=== PATIENT | male | born 1980 | race African-American/Black ===

== ENCOUNTER 2017-12-13 20:32 | Emergency (ER) | payer SELFPAY ==
[2017-12-13 20:41] VITALS: BP 116/66
[2017-12-13] MEDS ORDERED: LORATADINE 10 MG TABLET PO ONE (20:58)
[2017-12-13] MEDS ORDERED: ALBUTEROL SULFATE HFA (90 MCG/PUFF) 8 GM MDI (1 MDI/ER DISP) IH ONE (20:58)
--- NOTE | 2017-12-13 21:04 | ER Document Report ---
ED Medical Screen (RME) - General Chief Complaint: Facial Swelling Stated Complaint: FACIAL SWELLING Time Seen by Provider: 12/13/17 20:45 Mode of Arrival: Ambulatory Information source: Patient Notes: This is a 37-year-old man who presents to the emergency room with complaints of swelling in his face when he is out in the sun and with activity. He also states that when he is running around, he gets short of breath. He does report that he has a lot of dry skin and that he has had dry skin for a long time. Currently, the patient has no swelling, shortness of breath. He denies fever, chills, recent illnesses. He denies chest pain. He denies abdominal pain. He states his appetite is good. TRAVEL OUTSIDE OF THE [place] IN LAST 30 DAYS: No - HPI Onset: Other - Past few months Onset/Duration: Gradual Quality of pain: No pain Severity: None Pain Level: Denies Associated Symptoms: denies: Chest pain, Shortness of breath Exacerbated by: Denies Relieved by: Denies Similar symptoms previously: Yes Recently seen / treated by doctor: No - Related Data Smoking: Non-smoker Frequency of alcohol use: None Drug Abuse: None Allergies/Adverse Reactions: No Known Allergies Allergy (Verified 12/13/17 20:33) Past Medical History - General Information source: Patient - Social History Cigarette use (# per day): No Chew tobacco use (# tins/day): No Frequency of alcohol use: None Drug Abuse: None Lives with: Family Family history: None - Medical History Medical History: Negative Renal/ Medical History: Denies: Hx Peritoneal Dialysis Surgical Hx: Negative - Immunizations Hx Diphtheria, Pertussis, Tetanus Vaccination: Yes Review of Systems - Review of Systems Constitutional: denies: Chills, Fever EENT: See HPI Cardiovascular: denies: Chest pain, Palpitations, Heart racing Respiratory: See HPI Gastrointestinal: No symptoms reported Genitourinary: No symptoms reported Male Genitourinary: No symptoms reported Musculoskeletal: No symptoms reported Skin: No symptoms reported Hematologic/Lymphatic: No symptoms reported Neurological/Psychological: No symptoms reported Physical Exam - Vital signs Vitals: Temp Pulse Resp BP Pulse Ox 98.7 F 90 18 116/66 97 12/13/17 20:39 12/13/17 20:39 12/13/17 20:39 12/13/17 20:39 12/13/17 20:39 Notes: Physical exam: GENERAL: A 7-year-old man, alert and oriented 3, no acute distress HEAD: Atraumatic, normocephalic. EYES: Pupils equal round and reactive to light, extraocular movements intact, sclera anicteric, conjunctiva are normal. ENT: TMs normal, nares patent, oropharynx clear without exudates. Moist mucous membranes. NECK: Normal range of motion, supple without obvious mass or JVD. LUNGS: Breath sounds clear to auscultation bilaterally and equal. No wheezes rales or rhonchi. HEART: Regular rate and rhythm without murmurs, rubs or gallops. ABDOMEN: Soft, normoactive bowel sounds. No tenderness to palpation. No guarding, no rebound. No masses appreciated. EXTREMITIES: Normal range of motion, no pitting or edema. No clubbing or cyanosis. NEUROLOGICAL: Cranial nerves II through XII grossly intact. Normal speech, moving all extremities. PSYCH: Normal mood, normal affect. SKIN: Warm, Dry, normal turgor, no rashes or lesions noted. Course - Vital Signs Vital signs: Temp Pulse Resp BP Pulse Ox 98.7 F 90 18 116/66 97 12/13/17 20:39 12/13/17 20:39 12/13/17 20:39 12/13/17 20:39 12/13/17 20:39 Doctor's Discharge - Discharge Clinical Impression: Allergic type symptoms Condition: Stable Disposition: HOME, SELF-CARE Additional Instructions: In the emergency room, your oxygen level was near perfect. Your vital signs were normal. Your lung sounds were quite good and there was no obvious swelling of the face. From the sounds of the symptoms that she been having, it almost sounds like you may have exercise induced asthma and or some allergic symptoms. Often times we will have people follow-up with an hospitalist physician to undergo allergy testing. Recommendations: Take medicines as prescribed. Take epinephrine autoinjector for any shortness of breath or feelings like her airway is getting closed off work the ability to pass out. If you use the autoinjector, return to the ER at once. Followup with an hospitalist physician for allergy testing: [facility]: Address: [address] [place] [address], [place] [address] Return to the emergency room for any worsening swelling, concerns or getting worse. Prescriptions: Loratadine [Claritin 10 mg Tablet] 10 mg PO DAILY #30 tablet Referrals: [facility] [Provider Group] - Follow up as needed (This is the number the free clinic)
== END 2017-12-13 21:05 | disposition home or self-care (01) ==
LOC: ER 20:32
DX: R22.0 Localized swelling, mass and lump, head (principal); R06.02 Shortness of breath; T78.40XA Allergy, unspecified, initial encounter; X58.XXXA Exposure to other specified factors, initial encounter
CPT/HCPCS: 99283; J3490

== ENCOUNTER 2018-04-17 01:35 | Emergency (ER) | payer SELFPAY ==
[2018-04-17] MEDS ORDERED: NORMAL SALINE 1000 ML 1,000 ML IV ONE (02:13)
--- NOTE | 2018-04-17 02:51 | ER Document Report ---
ED General - General Chief Complaint: Dizziness Stated Complaint: DIZZY Time Seen by Provider: 04/17/18 01:50 Notes: Patient is a 37-year-old male that presents to the emergency department for chief complaint of blood in the stool. Patient states that over the past 3 days, he is noted some blood mixed with his stool. He has had some bloody diarrhea as well, occasionally states he will get a sharp pain in his rectum, but that is intermittent, currently he denies having any pain. When the pain does come on he describes it as a 4 out of 10, as mentioned sharp in nature. He denies prior history of bloody stools. Is not sure if he has had hemorrhoids in the past. Denies family history of inflammatory bowel disease. He denies noting any abdominal pain at this time, and overall he states he feels well, just wanted to have this evaluated. He denies any recent fevers, chills, night sweats, nausea, vomiting, chest pain or shortness of breath. Past Medical History: Denies chronic medical conditions Past Surgical History: Denies surgical history Social History: Denies tobacco, alcohol or drug use. Family History: Reviewed and noncontributory for presenting illness Allergies: Reviewed, see documented allergy list. REVIEW OF SYSTEMS: Other than noted above, the 12 point review of systems was reviewed with the patient and were negative, all pertinent findings are included in the HPI. PHYSICAL EXAMINATION: Vital signs reviewed, nursing noted reviewed. GENERAL: Well-appearing, well-nourished and in no acute distress. HEAD: Atraumatic, normocephalic. EYES: Eyes appear normal, extraocular movements intact, sclera anicteric, conjunctiva are normal. ENT: nares patent, oropharynx clear without exudates. Moist mucous membranes. NECK: Normal range of motion, supple without lymphadenopathy LUNGS: Breath sounds clear to auscultation bilaterally and equal. No wheezes rales or rhonchi. HEART: Regular rate and rhythm without murmurs ABDOMEN: Soft, nontender, normoactive bowel sounds. No rebound, guarding, or rigidity. No masses appreciated. EXTREMITIES: Nontender, good range of motion, no pitting or edema. NEUROLOGICAL: No focal neurological deficits. Moves all extremities spontaneously Motor and sensory grossly intact on exam. PSYCH: Normal mood, normal affect. SKIN: Warm, Dry, normal turgor, no rashes or lesions noted on exposed skin TRAVEL OUTSIDE OF THE [place] IN LAST 30 DAYS: No - Related Data Allergies/Adverse Reactions: No Known Allergies Allergy (Verified 12/13/17 20:33) Past Medical History - Social History Smoking Status: Never Smoker Family History: Reviewed & Not Pertinent Patient has suicidal ideation: No Patient has homicidal ideation: No Renal/ Medical History: Denies: Hx Peritoneal Dialysis - Immunizations Hx Diphtheria, Pertussis, Tetanus Vaccination: Yes Physical Exam - Vital signs Vitals: Temp Pulse Resp BP Pulse Ox 98.0 F 58 L 16 120/59 L 96 04/17/18 01:39 04/17/18 01:39 04/17/18 01:39 04/17/18 01:39 04/17/18 01:39 Course - Re-evaluation Re-evalutation: Patient seen and examined vital signs reviewed. Laboratory data and imaging were ordered as appropriate for the patient's presenting symptoms and complaint, with consideration of any critical or life threatening conditions that may be associated with their obtained history and exam as noted above. 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 And I do not think that is related to the patient's presentation. The patient was re-evaluated and was stable, patient's hemoglobin was stable, advised follow-up with gastroenterology, for blood in the stool, he is advised if he has lightheadedness or feels like he may pass out or having progressive bloody stools, that he should return to the emergency department sooner. Evaluation was most consistent with bloody diarrhea Results were discussed with the patient at this point, after careful consideration I feel that that patient can be discharged from the emergency department, the patient was educated treatments and reasons to return to the emergency department based on their presumed diagnosis as noted above, they were advised to followup with a primary care physician in 2-3 days. Patient was agreeable to plan of care. *Note is created using voice recognition software and may contain spelling, syntax or grammatical errors. Laboratory 04/17/18 04/17/18 02:50 02:50 WBC 5.0 RBC 4.31 L Hgb 14.0 Hct 41.2 MCV 96 MCH 32.6 MCHC 34.0 RDW 12.9 Plt Count 202 Seg Neutrophils % 44.6 Lymphocytes % 39.6 Monocytes % 8.5 Eosinophils % 6.3 H Basophils % 1.0 Absolute Neutrophils 2.2 Absolute Lymphocytes 2.0 Absolute Monocytes 0.4 Absolute Eosinophils 0.3 Absolute Basophils 0.0 Sodium 137.7 Potassium 4.1 Chloride 106 Carbon Dioxide 27 Anion Gap 5 BUN 16 Creatinine 1.11 Est GFR ( Amer) > 60 Est GFR (Non-Af Amer) > 60 Glucose 110 Calcium 9.3 Total Bilirubin 1.6 H Direct Bilirubin 0.1 Neonat Total Bilirubin Not Reportable Neonat Direct Bilirubin Not Reportable Neonat Indirect Bili Not Reportable AST 57 ALT 39 Alkaline Phosphatase 35 L Total Protein 5.9 L Albumin 3.5 - Vital Signs Vital signs: Temp Pulse Resp BP Pulse Ox 98.0 F 58 L 16 120/59 L 96 04/17/18 01:39 04/17/18 01:39 04/17/18 01:39 04/17/18 01:39 04/17/18 01:39 - Laboratory Result Diagrams: 04/17/18 02:50 04/17/18 02:50 Laboratory results interpreted by me: 04/17/18 04/17/18 02:50 02:50 RBC 4.31 L Eosinophils % 6.3 H Total Bilirubin 1.6 H Alkaline Phosphatase 35 L Total Protein 5.9 L - EKG Interpretation by Me Additional EKG results interpreted by me: EKG demonstrates sinus bradycardia with a ventricular rate of 51 bpm, normal axis, normal intervals, no evidence of acute ischemia on this EKG. No prior EKG for comparison. Discharge - Discharge Clinical Impression: Blood in stool Condition: Stable Disposition: HOME, SELF-CARE Instructions: Diarrhea, Nonspecific ([facility]) Additional Instructions: Please follow-up with a cmm inspector, and if you have worsening symptoms or if this is persisting and you have lightheadedness, and continue to have blood in your stool, do not hesitate to return to the emergency department. Referrals: ANIBAL OWENS MD [ACTIVE STAFF] - Follow up in 3-5 days SHADI SAAVEDRA MD [ACTIVE STAFF] - Follow up in 3-5 days
[2018-04-17 03:05] LABS: ABSOLUTE EOSINOPHILS # (AUTO) 0.3 10^3/uL (0.0-0.6); ABSOLUTE MONOCYTES (AUTO) 0.4 10^3/uL (0.1-1.4); ABSOLUTE NEUT (AUTO) 2.2 10^3/uL (1.7-8.2); EOSINOPHILS % (AUTO) 6.3 % (0-6); HEMATOCRIT 41.2 % (37.9-51.0); LYMPHOCYTES % (AUTO) 39.6 % (13-45); MEAN CORPUSCULAR HEMOGLOBIN 32.6 pg (27.0-33.4); MEAN CORPUSCULAR VOLUME 96 fl (80-97); MONOCYTES % (AUTO) 8.5 % (3-13); PLATELET COUNT 202 10^3/uL (150-450); RED BLOOD COUNT 4.31 10^6/uL (4.35-5.55); RED CELL DISTRIBUTION WIDTH 12.9 % (11.5-14.0); SEGMENTED NEUTROPHILS % (AUTO) 44.6 % (42-78); TOTAL CELLS COUNTED % (AUTO) 100 %
[2018-04-17 03:31] LABS: ALANINE AMINOTRANSFERASE 39 U/L (21-72); ALBUMIN 3.5 g/dL (3.5-5.0); ALKALINE PHOSPHATASE 35 U/L (38-126); ANION GAP 5 (5-19); ASPARTATE AMINO TRANSFERASE 57 U/L (17-59); BILIRUBIN,DIRECT 0.1 mg/dL (0.0-0.4); BILIRUBIN,TOTAL 1.6 mg/dL (0.2-1.3); BLOOD UREA NITROGEN 16 mg/dL (7-20); CALCIUM 9.3 mg/dL (8.4-10.2); CARBON DIOXIDE 27 mmol/L (22-30); CHLORIDE 106 mmol/L (98-107); GLUCOSE 110 mg/dL (75-110); POTASSIUM 4.1 mmol/L (3.6-5.0); SODIUM 137.7 mmol/L (137-145); TOTAL PROTEIN 5.9 g/dL (6.3-8.2)
[2018-04-17 04:09] VITALS: BP 124/82
--- NOTE | 2018-04-17 15:37 | EKG REPORT ---
SEVERITY:- ABNORMAL ECG - SINUS RHYTHM ST ELEVATION SUGGESTS PERICARDITIS : Confirmed by: Thais Oconnor 17-Apr-2018 15:36:41
== END 2018-04-17 04:09 | disposition home or self-care (01) ==
LOC: ER 01:35
DX: R19.5 Other fecal abnormalities (principal); R19.7 Diarrhea, unspecified; R42 Dizziness and giddiness
CPT/HCPCS: 93005; 99284; 96360; 36415; 85025; 80053; 93010; J7030

== ENCOUNTER 2019-12-22 21:32 | Emergency (ER) | payer SELFPAY ==
--- NOTE | 2019-12-22 23:17 | RADIOLOGY REPORT (SQ) ---
CLINICAL INDICATION: EDEMA . TECHNIQUE: PA and lateral views were obtained of the chest COMPARISON: None. FINDINGS: The cardiomediastinal silhouette is normal. The lungs demonstrate mild interstitial prominence without vascular congestion and subtle associated patchy alveolar space changes. No evidence of effusion or pneumothorax. Visualized bones are unremarkable. . IMPRESSION: Mild interstitial and alveolar space disease rather diffusely bilaterally. No vascular congestion. .
--- NOTE | 2019-12-23 00:01 | ER Document Report ---
ED Medical Screen (RME) - General Chief Complaint: Edema Stated Complaint: CHEST PAIN Time Seen by Provider: 12/22/19 23:53 Mode of Arrival: Wheelchair Information source: Patient Notes: 39 year-old male presented to ED for complaint of chest pain. He states intermittently he gets swelling to his face his neck his hands and his feet and then he gets severe chest pain. He states it comes and goes. He states he has not been to see a doctor since 2018. He states he lost some weight and thought he was could be fine so he did not follow-up with anybody. He states today he started getting the swelling in his face his neck his hands and his feet and then he started getting the chest pain. He actually feels a little better now. Patient is alert oriented and answering questions appropriately. I have greeted and performed a rapid initial assessment of this patient. A comprehensive ED assessment and evaluation of the patient, analysis of test results and completion of medical decision making process will be conducted by an additional ED providers. TRAVEL OUTSIDE OF THE [place] IN LAST 30 DAYS: No - Related Data Allergies/Adverse Reactions: No Known Allergies Allergy (Verified 12/13/17 20:33) Past Medical History - Social History Family history: None Renal/ Medical History: Denies: Hx Peritoneal Dialysis - Immunizations Hx Diphtheria, Pertussis, Tetanus Vaccination: Yes Physical Exam - Vital signs Vitals: Temp Pulse Resp BP Pulse Ox 98.2 F 54 L 18 118/49 L 97 12/22/19 21:47 12/22/19 21:47 12/22/19 21:47 12/22/19 21:47 12/22/19 21:47 Course - Vital Signs Vital signs: Temp Pulse Resp BP Pulse Ox 98.2 F 54 L 18 118/49 L 97 12/22/19 21:47 12/22/19 21:47 12/22/19 21:47 12/22/19 21:47 12/22/19 21:47
--- NOTE | 2019-12-23 00:47 | EKG REPORT ---
SEVERITY:- OTHERWISE NORMAL ECG - SINUS ARRHYTHMIA, RATE 45-66 : Confirmed by: Crista Muñoz MD 23-Dec-2019 00:46:07
--- NOTE | 2019-12-23 00:50 | ER Document Report ---
ED General - General Chief Complaint: Edema Stated Complaint: CHEST PAIN Time Seen by Provider: 12/22/19 23:53 Mode of Arrival: Wheelchair Information source: Patient Notes: ED Medical Screen (Henok dominguez) - General Chief Complaint: Edema Stated Complaint: CHEST PAIN Time Seen by Provider: 12/22/19 23:53 Mode of Arrival: Wheelchair Information source: Patient Notes: 39 year-old male presented to ED for complaint of chest pain. He states intermittently he gets swelling to his face his neck his hands and his feet and then he gets severe chest pain. He states it comes and goes. He states he has not been to see a doctor since 2018. He states he lost some weight and thought he was could be fine so he did not follow-up with anybody. He states today he started getting the swelling in his face his neck his hands and his feet and then he started getting the chest pain. He actually feels a little better now. Patient is alert oriented and answering questions appropriately. MY NOTES 39-year-old black male arrives with acute onset of diffuse chest pain and shortness of breath. It was worse yesterday after working out with weights in the heat. He began to have tightness of his throat neck swelling perioral and periorbital eye swelling swelling of his hands and feet. He reports symptoms like this first began when he was 29 years old and progressively has been getting worse. He denies any use of cocaine but reports when he was younger he did smoke a lot of cigarettes. Patient denies any HIV tuberculosis coronavirus exposure. He has not been outside the [place]. He denies any prior history of lupus or sarcoidosis in his family or any cancer or heart disease or pulmonary embolism. His chest x-ray today reveals bilateral hilar adenopathy and right lower lobe adenopathy. 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 TRAVEL OUTSIDE OF THE [place] IN LAST 30 DAYS: No - HPI Onset: This morning Quality of pain: Achy Severity: Mild Pain Level: 1 Associated symptoms: Shortness of breath Exacerbated by: Movement, Deep breathing Similar symptoms previously: Yes Recently seen / treated by doctor: No - Related Data Allergies/Adverse Reactions: No Known Allergies Allergy (Verified 12/13/17 20:33) Past Medical History - General Information source: Patient - Social History Smoking Status: Former Smoker Cigarette use (# per day): No Chew tobacco use (# tins/day): No Smoking Education Provided: No Frequency of alcohol use: Occasional Drug Abuse: None Lives with: Family Family History: Reviewed & Not Pertinent Patient has suicidal ideation: No Patient has homicidal ideation: No Renal/ Medical History: Denies: Hx Peritoneal Dialysis - Immunizations Hx Diphtheria, Pertussis, Tetanus Vaccination: Yes Review of Systems - Review of Systems Constitutional: See HPI EENT: No symptoms reported Cardiovascular: See HPI, Dyspnea, Edema Respiratory: See HPI, Cough, Short of breath Gastrointestinal: No symptoms reported Genitourinary: No symptoms reported Male Genitourinary: No symptoms reported Musculoskeletal: No symptoms reported, Joint pain Skin: See HPI, Change in hair/nails, Dryness - Patient complains of severely dry skin Hematologic/Lymphatic: No symptoms reported Neurological/Psychological: No symptoms reported Physical Exam - Vital signs Vitals: Temp Pulse Resp BP Pulse Ox 98.2 F 54 L 18 118/49 L 97 12/22/19 21:47 12/22/19 21:47 12/22/19 21:47 12/22/19 21:47 12/22/19 21:47 Interpretation: Hypertensive - HEENT Head: Normocephalic, Atraumatic Eyes: Normal Pupils: PERRL Nasal: Normal Mouth/Lips: Normal Mucous membranes: Normal Pharynx: Normal Neck: Normal - Respiratory Respiratory status: No respiratory distress Chest status: Nontender Breath sounds: Normal Chest palpation: Normal - Cardiovascular Rhythm: Regular Heart sounds: Normal auscultation Murmur: No - Abdominal Inspection: Normal Distension: No distension Bowel sounds: Normal Tenderness: Nontender Organomegaly: No organomegaly - Rectal Prostate: Other - deferred - Genitourinary Scrotum: Other - deferred - Back Back: Normal - Extremities General upper extremity: Normal inspection General lower extremity: Normal inspection - Neurological Neuro grossly intact: Yes Cognition: Normal Orientation: AAOx4 Zachery Coma Scale Eye Opening: Spontaneous Zachery Coma Scale Verbal: Oriented Zachery Coma Scale Motor: Obeys Commands [place] Coma Scale Total: 15 Speech: Normal Motor strength normal: LUE, RUE, LLE, RLE Sensory: Normal - Psychological Associated symptoms: Normal affect - Skin Skin Temperature: Warm Skin Moisture: Dry Course - Vital Signs Vital signs: Temp Pulse Resp BP Pulse Ox 98.2 F 54 L 19 120/76 100 12/22/19 21:47 12/22/19 21:47 12/23/19 01:01 12/23/19 01:01 12/23/19 01:01 - Laboratory Result Diagrams: 12/23/19 00:44 12/23/19 00:44 Laboratory results interpreted by me: 12/23/19 12/23/19 12/23/19 00:44 00:44 01:16 RBC 4.28 L Total Bilirubin 1.5 H Alkaline Phosphatase 36 L Total Protein 5.6 L Albumin 3.3 L Urine Urobilinogen 4.0 H - Diagnostic Test Radiology reviewed: Reports reviewed - EKG Interpretation by Me EKG shows normal: Sinus rhythm Rate: Bradycardia Rhythm: NSR - [address] elevation no ST depression no T wave elevation no T wave depression axis appears to be within normal limits Discharge - Discharge Clinical Impression: Chest pain at rest, low total protein on blood tests, Bradycardia, Interstitial lung disease Edema Qualifiers: Edema type: unspecified Qualified Code(s): R60.9 - Edema, unspecified Condition: Good Disposition: HOME, SELF-CARE Additional Instructions: Follow-up with Dr. Holbrook road supervisor this week call his office for appointment. Return to ER as needed take medicines as directed. You may want to take consume higher protein in an attempt to raise your total protein levels. Your total protein level in your bloodstream was low tonight. This may contribute to some edema. Also a bunch test was done today and may need quarantine until this test results returned. Referrals: JAMAAL HOLBROOK MD [ACTIVE PROVISIONAL STAFF] - Follow up as needed
[2019-12-23 01:05] LABS: ABSOLUTE EOSINOPHILS # (AUTO) 0.3 10^3/uL (0.0-0.6); ABSOLUTE LYMPHOCYTES (AUTO) 1.7 10^3/uL (0.5-4.7); ABSOLUTE MONOCYTES (AUTO) 0.4 10^3/uL (0.1-1.4); ABSOLUTE NEUT (AUTO) 2.4 10^3/uL (1.7-8.2); BASOPHILS % (AUTO) 0.4 % (0-2); EOSINOPHILS % (AUTO) 5.5 % (0-6); HEMATOCRIT 41.1 % (37.9-51.0); HEMOGLOBIN 13.8 g/dL (13.5-17.0); LYMPHOCYTES % (AUTO) 34.6 % (13-45); MEAN CORPUSCULAR HEMOGLOBIN 32.2 pg (27.0-33.4); MEAN CORPUSCULAR HGB CONC 33.5 g/dL (32.0-36.0); MEAN CORPUSCULAR VOLUME 96 fl (80-97); PLATELET COUNT 170 10^3/uL (150-450); RED BLOOD COUNT 4.28 10^6/uL (4.35-5.55); RED CELL DISTRIBUTION WIDTH 13.1 % (11.5-14.0); SEGMENTED NEUTROPHILS % (AUTO) 50.5 % (42-78); TOTAL CELLS COUNTED % (AUTO) 100 %; WHITE BLOOD COUNT 4.8 10^3/uL (4.0-10.5)
[2019-12-23 01:11] LABS: ALBUMIN 3.3 g/dL (3.5-5.0); ALKALINE PHOSPHATASE 36 U/L (38-126); ANION GAP 6 (5-19); ASPARTATE AMINO TRANSFERASE 26 U/L (17-59); BILIRUBIN,DIRECT 0.1 mg/dL (0.0-0.4); BILIRUBIN,TOTAL 1.5 mg/dL (0.2-1.3); BLOOD UREA NITROGEN 16 mg/dL (7-20); CALCIUM 8.4 mg/dL (8.4-10.2); CARBON DIOXIDE 27 mmol/L (22-30); CHLORIDE 106 mmol/L (98-107); CREATINE KINASE 131 U/L (55-170); GLUCOSE 79 mg/dL (75-110); TOTAL PROTEIN 5.6 g/dL (6.3-8.2)
[2019-12-23 01:47] LABS: NT PRO BNP 62 pg/mL (<125)
[2019-12-23 01:50] LABS: APPEARANCE,URINE CLEAR; BILIRUBIN,URINE NEGATIVE (NEGATIVE); COLOR,URINE YELLOW; GLUCOSE, URINE NEGATIVE (NEGATIVE); KETONES,URINE NEGATIVE (NEGATIVE); LEUKOCYTE ESTERASE,URINE NEGATIVE (NEGATIVE); NITRITE,URINE NEGATIVE (NEGATIVE); PROTEIN,URINE NEGATIVE (NEGATIVE); URINE SPECIFIC GRAVITY 1.018
[2019-12-23 02:06] LABS: TROPONIN I < 0.012 ng/mL
[2019-12-23 02:19] LABS: URINE AMPHETAMINES SCREEN NEGATIVE; URINE BARBITURATES SCREEN NEGATIVE; URINE BENZODIAZEPINES SCREEN NEGATIVE; URINE COCAINE SCREEN NEGATIVE; URINE MARIJUANA (THC) SCREEN NEGATIVE; URINE METHADONE SCREEN NEGATIVE; URINE PHENCYCLIDINE SCREEN NEGATIVE
--- NOTE | 2019-12-23 02:29 | RADIOLOGY REPORT (SQ) ---
CLINICAL INDICATION: lung lesions sob. . TECHNIQUE: CT arteriography was obtained of the chest with multiplanar MIP and/or 3-D angiographic reconstructions. This exam was performed according to our departmental dose-optimization program, which includes automated exposure control, adjustment of the mA and/or kV according to patient size and/or use of iterative reconstruction techniques. COMPARISON: None. CORRELATION: None. FINDINGS: Heterogeneous contrast bolus. Average Hounsfield unit measurement within main pulmonary artery segment of 245. Artifact from venous opacification. Motion artifact There is no evidence of pulmonary embolus. Small branch vessels less well seen. Thoracic aorta is of normal caliber. The heart is of normal size. No pericardial effusion. No bulky mediastinal adenopathy. The lungs demonstrate subtle diffuse interstitial prominence. No focal airspace consolidation. Detail obscured by motion. No effusion. No pneumothorax. Visualized abdominal contents are unremarkable. Visualized bones are unremarkable. IMPRESSION: Heterogeneous contrast bolus. Imaging is degraded by patient motion, with resultant artifact. The best possible images were obtained. No central pulmonary embolus. Small branch vessels difficult to assess. Progressive interstitial prominence bilaterally, presumed infectious inflammatory. No vascular congestion .
[2019-12-23 03:11] VITALS: BP 134/80
== END 2019-12-23 03:18 | disposition home or self-care (01) ==
LOC: ER 21:32
DX: R07.9 Chest pain, unspecified (principal); R60.9 Edema, unspecified; J84.9 Interstitial pulmonary disease, unspecified; R00.1 Bradycardia, unspecified; R78.89 Finding of other specified substances, not normally found in blood; L85.3 Xerosis cutis; Z20.818 Contact with and (suspected) exposure to other bacterial communicable diseases
CPT/HCPCS: 93005; 99285; 36415; 82550; 84443; 85025; 87635; 80053; 81001; 84484; 80307; 83880; 71046; 71275; 93010; C9803